=== PATIENT | male | born 1955 | race Caucasian/White ===

== ENCOUNTER 2017-05-15 04:39 | Emergency (ER) | payer OTHER ==
[~2017-05-15] VITALS: Ht 193 cm; Wt 104.3 kg
[2017-05-15] MEDS ORDERED: ZYRTEC10 MG PO (04:50)
[2017-05-15] MEDS ORDERED: SINGULAIR10 MG PO (04:50)
[2017-05-15] MEDS ORDERED: NASACORT10.8 ML NAS (04:51)
[2017-05-15] MEDS ORDERED: LOSARTAN POTASS25 MG PO (04:51)
[2017-05-15] MEDS ORDERED: PREDNISONE20 MG PO (05:10)
== END 2017-05-15 05:13 | disposition home or self-care (01) ==
LOC: ED 04:39
DX: J30.9 Allergic rhinitis, unspecified (principal); E78.00 Pure hypercholesterolemia, unspecified; Z79.899 Other long term (current) drug therapy
CPT/HCPCS: 99282; 99283; J7512